=== PATIENT | male | born 1970 | race Caucasian/White ===

== ENCOUNTER 2025-03-08 16:25 | Emergency (ER) | payer OTHER ==
[~2025-03-08] VITALS: Ht 175.3 cm; Wt 94.0 kg
[2025-03-08] MEDS ORDERED: MELOXICAM15 MG PO (16:41)
[2025-03-08 17:11] LABS: BASOPHILS 0.5 % (0.2-1.2); EOSINOPHILS 1.8 % (0.8-7.0); LYMPHOCYTES 11.3 % (21.8-53.1); MCH 31.1 PG (25.7-32.2); MCHC 33.5 g/dL (32.3-36.5); MCV 92.8 fL (79.0-92.2); MONOCYTES 10.0 % (5.3-12.2); NEUTROPHILS 76.0 % (34.0-67.9); RBC 4.73 M/uL (4.63-6.08)
[2025-03-08 17:22] LABS: GLOMERULAR FILTRATION RATE,EST 79.0 mL/min (>60); UREA NITROGEN 11.0 mg/dL (7-18)
[2025-03-08] MEDS ORDERED: BACTRIM DS TAB1 EACH PO (18:12)
[2025-03-08 18:26] VITALS: BP 144/70
== END 2025-03-08 18:26 | disposition home or self-care (01) ==
LOC: ED 16:25
PROVIDERS: Emergency Medicine
DX: L03.115 Cellulitis of right lower limb (principal)
CPT/HCPCS: 36415; 80048; 85025; 87040; 96365; 99283-25; J0696